=== PATIENT | female | born 1955 | race Caucasian/White ===

== ENCOUNTER → 2017-09-11 18:00 | Outpatient (CLI) | payer BC | END | disposition home or self-care (01) | LOC: D.MAMMO 16:00 | DX: Z12.31 Encounter for screening mammogram for malignant neoplasm of breast (principal) ==

== ENCOUNTER → 2019-03-22 12:33 | Outpatient (CLI) | payer BC | END | disposition home or self-care (01) | LOC: D.CT 12:33 | PROVIDERS: ATTEND Family Medicine | DX: R51 Headache (principal) ==

== ENCOUNTER → 2019-04-11 12:31 | Outpatient (CLI) | payer BC | END | disposition home or self-care (01) | LOC: D.MRI 12:31 | PROVIDERS: ATTEND Family Medicine | DX: G44.53 Primary thunderclap headache (principal) ==

== ENCOUNTER → 2019-10-15 19:00 | Outpatient (CLI) | payer BC | END | disposition home or self-care (01) | LOC: D.MAMMO 15:45 | PROVIDERS: ATTEND Family Medicine | DX: Z12.31 Encounter for screening mammogram for malignant neoplasm of breast (principal) ==

== ENCOUNTER → 2020-11-30 09:44 | Outpatient (CLI) | payer MEDICARE, BC ==
--- NOTE | ~2020-11-30 | EC ---
PATIENT:TARI PARISI DATE OF SERVICE: 11/30/20 SEX: F MEDICAL RECORD: [id number] DATE OF : [birth year] [facility] AGE OF PATIENT: 64 ADMISSION DATE: 11/30/20 REFERRING PHYSICIAN: INTERPRETING PHYSICIAN: TABITHA SULLIVAN MD ECHOCARDIOGRAM REPORT ECHO CHARGES 4 ECHO COMPLETE Date: 11/30/20 CLINICAL DIAGNOSIS: HEART MURMUR/ANGINA ECHOCARDIOGRAPHIC MEASUREMENTS (adult normal given) AC root (d.<3.7cm) 3.0 cm LV Septum d (<1.2 cm> 1.4 cm Valve Excursion 1.2 cm LV Septum (systole) 1.6 cm Left Atria (s.<4.0cm> 3.8 cm LVPW d(<1.2cm) 1.6 cm RV (d.<2.3cm) 3.3 cm LVPW (sytole) 1.9 cm LV diastole(<5.6CM) 4.3 cm MV E-F(>70mm/sec) cm LV systole 2.6 cm LVOT Diameter 1.8 cm MV exc.(>10mm) 1.4 cm Est.ejection fraction (50-75%) % DOPPLER: LVIT cm/sec A 50.0 cm/sec E 79.0 cm/sec LA cm/sec RVSP 28 mmHg LVOT 100 cm/sec AOP1/2T m/s Asc. Ao 152 cm/sec RVOT 69 cm/sec RA cm/sec PA 122 cm/sec AV Gradient Peak 9.24 mmHg AV Mean 5.19 mmHg AV Area 1.6 cm MV Gradient Peak 3.90 mmHg MV Mean 1.04 mmHg MV Area cm COMMENTS: Browning Processor: 2 ERNA HALL Licensing Registration Examiner: 3 Dr. Peña TAPE# PACS Pericardial Effusion N DATE OF SERVICE: Adequate 2D, color-flow imaging, spectral Doppler, and M-Mode FINDINGS: LVH is present. LV internal dimensions are normal. Wall motion is normal. EF is greater than or equal to 55%. Aortic valve is tricuspid. No evidence of stenosis by Doppler interrogation. Left atrium is normal at 3.8 cm. Mitral valve shows no prolapse. Trace MR. Right side is grossly normal. Mild TR. ECHOCARDIOGRAM REPORT [id number] TARI PARISI TRANSINT:[id number] Voice Confirmation ID: [id number] DOCUMENT ID: [id number] TABITHA SULLIVAN MD CC: [id number] DICTATION DATE: 12/01/20 0807 PHYSICAL THERAPY TEACHER: 12/01/20 1153 DEP CLI 11/30/20 [place] [id number]
== END | disposition home or self-care (01) ==
LOC: D.HCCECHO 09:44
PROVIDERS: ATTEND Internal Medicine Cardiovascular Disease
DX: R07.9 Chest pain, unspecified (principal); R01.1 Cardiac murmur, unspecified